=== PATIENT | female | born 1970 | race American Indian/Alaskan Native ===

== ENCOUNTER 2018-05-25 12:32 | Emergency (ER) | payer SELFPAY ==
--- NOTE | 2018-05-25 13:31 | Emergency Department Report ---
Chief Complaint: Abdominal Pain Stated Complaint: PELVIC PAIN/STOMACH PAIN Time Seen by Provider: 05/25/18 13:27 - HPI History of Present Illness: Pt is c/o right pelvic pain that began a couple of days ago hx of ovarian cyst no urinary sx, no fever, no N/V +smoker +marijuana LNMP 05/05/18 MSE screening note: Focused history and physical exam performed. Due to findings the following was ordered: UA, labs, pelvic US ED Disposition for MSE Condition: Stable Instructions: Abdominal Pain (ED)
[2018-05-25 14:29] LABS: Bacteria,Urine 1+ /HPF (Negative); Bilirubin,Urine NEG (Negative); Blood,Urine NEG (Negative); Color,Urine Yellow (Yellow); Mucus,Urine FEW /HPF; Protein,Urine <15 mg/dL mg/dL (Negative); Urobilinogen,Urine < 2.0 mg/dL (<2.0)
--- NOTE | 2018-05-25 14:31 | Emergency Department Report ---
ED Female HPI - General Chief complaint: Abdominal Pain Stated complaint: PELVIC PAIN/STOMACH PAIN Time Seen by Provider: 05/25/18 13:27 Source: patient Mode of arrival: Ambulatory Limitations: No Limitations - History of Present Illness Initial comments: This is a 48-year-old female nontoxic, well nourished in appearance, no acute signs of distress presents to the ED with c/o of right pelvic pain 1 day. Patient denies any nausea or vomiting. Patient describes pelvic pain as cramping and aching with level of 3/10 right. Patient denies chest pain, short of breath, fever, chills, headache, stiff neck, numbness or tingling. Patient denies any diarrhea or constipation. Patient denies any radiation of pain. Patient stated has history of ovarian cyst and symptoms are very similar. Patient denies any recent travels. Patient denies any drug allergies. MD Complaint: pelvic pain -: days(s) (1) Radiation: non-radiating Severity: mild Severity scale (0 -10): 3 Quality: cramping, aching Consistency: intermittent Improves with: none Worsens with: none Are you Now?: No Associated Symptoms: denies other symptoms. denies: vaginal discharge, vaginal bleeding, abdominal pain, nausea/vomiting, fever/chills, headaches, loss of appetite, dysuria, hematuria, rash, seizure, shortness of breath, syncope, weakness - Related Data Previous Rx's Medication Instructions Recorded Last Taken Type EPINEPHrine [Epipen 2-Alex] 0.3 mg IM PRN #2 ml 08/31/14 Unknown Rx diphenhydrAMINE [Benadryl] 25 mg PO Q6HR #8 capsule 08/31/14 Unknown Rx predniSONE [Prednisone] 50 mg PO DAILY #5 tablet 08/31/14 Unknown Rx Ibuprofen [Motrin] 600 mg PO Q8H PRN #20 tablet 05/25/18 Unknown Rx Allergies Allergy/AdvReac Type Severity Reaction Status Date / Time No Known Allergies Allergy Verified 05/25/18 12:33 ED Review of Systems ROS: Stated complaint: PELVIC PAIN/STOMACH PAIN Other details as noted in HPI Constitutional: denies: chills, fever Eyes: denies: eye pain, eye discharge, vision change ENT: denies: ear pain, throat pain Respiratory: denies: cough, shortness of breath, wheezing Cardiovascular: denies: chest pain, palpitations Endocrine: no symptoms reported Gastrointestinal: denies: abdominal pain, nausea, diarrhea Genitourinary: denies: urgency, dysuria, discharge Musculoskeletal: denies: back pain, joint swelling, arthralgia Skin: denies: rash, lesions Neurological: denies: headache, weakness, paresthesias Psychiatric: denies: anxiety, depression Hematological/Lymphatic: denies: easy bleeding, easy bruising ED Past Medical Hx - Past Medical History Previous Medical History?: No - Surgical History Past Surgical History?: No - Social History Smoking Status: Current Every Day Smoker Substance Use Type: Marijuana - Medications Home Medications: Home Medications Medication Instructions Recorded Confirmed Last Taken Type EPINEPHrine [Epipen 2-Alex] 0.3 mg IM PRN #2 ml 08/31/14 Unknown Rx diphenhydrAMINE [Benadryl] 25 mg PO Q6HR #8 capsule 08/31/14 Unknown Rx predniSONE [Prednisone] 50 mg PO DAILY #5 tablet 08/31/14 Unknown Rx Ibuprofen [Motrin] 600 mg PO Q8H PRN #20 tablet 05/25/18 Unknown Rx ED Physical Exam - General Limitations: No Limitations General appearance: alert, in no apparent distress - Head Head exam: Present: atraumatic, normocephalic - Eye Eye exam: Present: normal appearance - Neck Neck exam: Present: normal inspection, full ROM - Respiratory Respiratory exam: Present: normal lung sounds bilaterally. Absent: respiratory distress, wheezes, rales, rhonchi, stridor, chest wall tenderness, accessory muscle use, decreased breath sounds, prolonged expiratory - Cardiovascular Cardiovascular Exam: Present: regular rate, normal rhythm, normal heart sounds. Absent: bradycardia, tachycardia, irregular rhythm, systolic murmur, diastolic murmur, rubs, gallop - GI/Abdominal GI/Abdominal exam: Present: soft, normal bowel sounds. Absent: distended, tenderness, guarding, rebound, rigid, diminished bowel sounds - Expanded GI/Abdominal Exam Expanded GI/Abdominal exam: Absent: psoas sign, Shen's sign, Rovsing's sign, tenderness at Mcburney's Point, ascites - Extremities Exam Extremities exam: Present: normal inspection, full ROM - Back Exam Back exam: Present: normal inspection, full ROM. Absent: tenderness, CVA tenderness (R), CVA tenderness (L), muscle spasm, paraspinal tenderness, vertebral tenderness, rash noted - Neurological Exam Neurological exam: Present: alert, oriented X3 - Psychiatric Psychiatric exam: Present: normal affect, normal mood - Skin Skin exam: Present: warm, dry, intact, normal color. Absent: rash ED Course Vital Signs 05/25/18 13:28 Temperature 98.1 F Pulse Rate 65 Respiratory 16 Rate Blood Pressure 139/88 O2 Sat by Pulse 98 Oximetry - Reevaluation(s) Reevaluation #1: 05/25/18 14:35 Patient is speaking in full sentences with no signs of distress noted. ED Medical Decision Making - Lab Data Result diagrams: 05/25/18 14:07 05/25/18 14:13 - Medical Decision Making This is a 48-year-old female that presents with pelvic pain, fibroids and ovarian cyst. Patient is stable and was examined by me. There is no abdominal tenderness. Negative signs of symptoms of appendicitis. Labs obtained. UA obtained. US of pelvic/transvaginal obtained and dictated by the radiologist. Patient is notified of the report with no questions noted by the patient. Vital signs are stable prior to discharge. Patient received Motrin in the ED which patient stated symptoms has resolved and subsided. A by mouth challenge has been obtained and patient tolerated well with no nausea vomiting. Patient was notified of strict precautions of appendicitis symptoms and to return to the ED if symptoms occurs as soon as possible. Patient was also instructed to Follow- up with OBGYN doctor in 3-5 days or if symptoms worsen and continue return to emergency room as soon as possible. At time of discharge, the patient does not seem toxic or ill in appearance. No acute signs of distress noted. Patient agrees to discharge treatment plan of care. No further questions noted by the patient. Critical care attestation.: If time is entered above; I have spent that time in minutes in the direct care of this critically ill patient, excluding procedure time. ED Disposition Clinical Impression: Pelvic pain Ovarian cyst Qualifiers: Laterality: right Qualified Code(s): N83.201 - Unspecified ovarian cyst, right side Uterine fibroid Qualifiers: Uterine leiomyoma location: unspecified location Qualified Code(s): D25.9 - Leiomyoma of uterus, unspecified Disposition: DC- TO HOME OR SELFCARE Is pt being admited?: No Does the pt Need Aspirin: No Condition: Stable Instructions: Ovarian Cyst (ED), Uterine Fibroids (ED) Additional Instructions: Follow-up with a OBGYNe doctor in 3-5 days or if symptoms worsen and continue return to emergency room as soon as possible. Prescriptions: Ibuprofen [Motrin] 600 mg PO Q8H PRN #20 tablet PRN Reason: Pain Referrals: PRIMARY CARE, [Referring] - 3-5 Days MELANIE VALLE MD [Staff Physician] - 3-5 Days [facility] [Outside] - 3[facility] Days [facility] - [facility]-5 Days Forms: Work/School Release Form(ED)
[2018-05-25 14:33] LABS: HCG Qualitative,Urine Negative (Negative)
[2018-05-25 14:35] LABS: Basophils # (Auto) 0.1 K/mm3 (0.0-0.1); Eosinophils # (Auto) 0.2 K/mm3 (0.0-0.4); Eosinophils % (Auto) 3.4 % (0.0-4.3); Hemoglobin 10.7 gm/dl (10.1-14.3); Lymphocytes # (Auto) 1.6 K/mm3 (1.2-5.4); Lymphocytes % (Auto) 25.5 % (13.4-35.0); Mean Corpuscular HGB Conc 34 % (30-34); Mean Corpuscular Volume 75 fl (79-97); Monocytes # (Auto) 0.5 K/mm3 (0.0-0.8); Monocytes % (Auto) 7.9 % (0.0-7.3); Platelet Count 243 K/mm3 (140-440); Red Blood Count 4.29 M/mm3 (3.65-5.03); Red Cell Distribution Width 17.1 % (13.2-15.2)
[2018-05-25 15:04] LABS: Alanine Aminotransferase 8 units/L (7-56); Albumin 3.9 g/dL (3.9-5); BUN/Creatinine Ratio 11; Blood Urea Nitrogen 8 mg/dL (7-17); Calcium 9.1 mg/dL (8.4-10.2); Hemolysis Index 5
[2018-05-25 15:07] LABS: Bilirubin,Direct < 0.2 mg/dL (0-0.2)
[2018-05-25] MEDS ORDERED: IBUPROFEN PO ONE (16:03)
--- NOTE | 2018-05-25 16:27 | Ultrasound Report ---
PROCEDURE: US TRANSVAGINAL TECHNIQUE: Transverse longitudinal sonograms obtained with transvaginal hurley scale sonography. HISTORY: right sided pelvic pain, hx ovarian cyst COMPARISONS: None FINDINGS: Uterus measures 9.5 x 5.1 x 6.2 cm. Multiple fibroids are present. Private Duty Aide anterior uterine body intramural fibroid measures 2.8 x 2.1 x 2.6 cm. Private Duty Aide posterior uterine body intramural fibroid measures 2.0 x 2.0 x 2.0 cm. Endometrial thickness 0.6 cm. Right ovary measures 3.0 x 2.0 x 2.2 cm. Left ovary measures 3.8 x 2.5 x 3.3 cm. Both ovaries demonstrate blood flow. 2.9 cm complex cystic lesion left ovary compatible with dominant follicle or corpus luteum. Minimal free fluid IMPRESSION: Multiple uterine fibroids. Normal endometrial thickness Bilateral ovaries demonstrate normal size. Blood flow present. Dominant follicle or corpus luteum left ovary Minimal free fluid. This document is electronically signed by Rick Anderson MD., May 25 2018 04:24:47 PM ET
--- NOTE | 2018-05-25 16:59 | Ultrasound Report ---
PROCEDURE: US PELVIS DUPLEX DOPPLER COMP TECHNIQUE: Transabdominal grayscale, color flow and Doppler waveform imaging of the pelvis was perfo rmed. HISTORY: right pelvic pain COMPARISONS: Transvaginal study also performed today FINDINGS: The uterus measures 9.5 cm x 5.1 cm x 6.2 cm and is fibroid in appearance. The largest measured fibroid measures approximately 2.4 cm in the maximum dimension. Endometrial thickness measures 8.6 mm. The right ovary measures 3 cm x 2 cm x 2 cm in size and is unremarkable in appearance. The left ovary measures 3.9 cm x 1.9 cm x 4.2 cm and contains an approximately 1.7 cm dominant follic le or small cyst. Flow is demonstrated in both ovaries utilizing color flow and Doppler waveform imaging. No free fluid is demonstrated in the pelvis. IMPRESSION: 1. Fibroid uterus. The report of the transvaginal study describes fibroid measurements. 2. Dominant follicle or small cyst left ovary. 3. Flow is demonstrated in both ovaries. This document is electronically signed by Rachael Conley MD., May 25 2018 04:56:41 PM ET
[2018-05-25 18:14] VITALS: BP 144/92
== END 2018-05-25 18:12 | disposition home or self-care (01) ==
LOC: ED 12:32
DX: N83.201 Unspecified ovarian cyst, right side (principal); D25.9 Leiomyoma of uterus, unspecified; F17.200 Nicotine dependence, unspecified, uncomplicated
CPT/HCPCS: 36415; 76830; 80048; 80076; 81001; 81025; 83690; 85025; 93975

== ENCOUNTER 2018-09-21 16:34 | Emergency (ER) | payer SELFPAY ==
--- NOTE | 2018-09-21 17:06 | Event Note ---
ED Screening Note ED Screening Note: pt presents left hip pain that began last night while she was asleep she denies any fall or injury no urinary sx LNMP: september 05 PMHx HTN- does not take medication for it This initial assessment/diagnostic orders/clinical plan/treatment(s) is/are subject to change based on patients health status, clinical progression and re- assessment by fellow clinical providers in the ED. Further treatment and workup at subsequent clinical providers discretion. Patient/guardian urged not to elope from the ED as their condition may be serious if not clinically assessed and managed. Initial orders include: UA, urine preg, XR of the left hip
[2018-09-21 17:09] VITALS: BP 149/80
[2018-09-21 17:49] LABS: HCG Qualitative,Urine Negative (Negative)
[2018-09-21 17:50] LABS: Bilirubin,Urine NEG (Negative); Blood,Urine SM (Negative); Color,Urine Yellow (Yellow); Mucus,Urine FEW /HPF; Protein,Urine <15 mg/dL mg/dL (Negative); Urobilinogen,Urine < 2.0 mg/dL (<2.0)
--- NOTE | 2018-09-21 18:18 | XRay Report ---
2 views of the left hip INDICATION / CLINICAL INFORMATION: left hip pain. COMPARISON: None available. FINDINGS: BONES/JOINT(S): No acute fracture or subluxation. No significant degenerative changes. Normal bone mi neralization. SOFT TISSUES: No significant abnormality. ADDITIONAL FINDINGS: None. Signer Name: Marv Jiménez MD Signed: 09/21/2018 6:14 PM Workstation Name: [id number]
[2018-09-21] MEDS ORDERED: NORCO 5/325 PO STA (20:43)
--- NOTE | 2018-09-21 20:51 | Emergency Department Report ---
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 States that she worked long hours, 2 days prior and thinks that may have triggered some of the hip discomfort. Pain is sharp and occasionally does radiate down the thigh, worse with prolonged standing and some positions and palpation. No numbness or tingling. No swelling or bruising. He reports no broken skin or rash MD Complaint: hip injury -: Gradual Injury: Hip: Left Type of Injury: unknown Place: home Severity: mild Improves With: nothing Worsens With: nothing Associated Symptoms: ambulatory. denies: numbness, able to partially bear weight - Related Data Previous Rx's Medication Instructions Recorded Last Taken Type EPINEPHrine [Epipen 2-Alex] 0.3 mg IM PRN #2 ml 08/31/14 Unknown Rx diphenhydrAMINE [Benadryl] 25 mg PO Q6HR #8 capsule 08/31/14 Unknown Rx predniSONE [Prednisone] 50 mg PO DAILY #5 tablet 08/31/14 Unknown Rx Ibuprofen [Motrin] 600 mg PO Q8H PRN #20 tablet 05/25/18 Unknown Rx predniSONE [Deltasone] 50 mg PO QDAY #5 tab 09/21/18 Unknown Rx Allergies Allergy/AdvReac Type Severity Reaction Status Date / Time No Known Allergies Allergy Verified 09/21/18 16:35 ED Review of Systems ROS: Stated complaint: RT HIP PAIN Other details as noted in HPI Comment: All other systems reviewed and negative ED Past Medical Hx - Past Medical History Previous Medical History?: Yes Hx Hypertension: Yes - Surgical History Past Surgical History?: No - Social History Smoking Status: Never Smoker Substance Use Type: Alcohol, Marijuana - Medications Home Medications: Home Medications Medication Instructions Recorded Confirmed Last Taken Type EPINEPHrine [Epipen 2-Alex] 0.3 mg IM PRN #2 ml 08/31/14 Unknown Rx diphenhydrAMINE [Benadryl] 25 mg PO Q6HR #8 capsule 08/31/14 Unknown Rx predniSONE [Prednisone] 50 mg PO DAILY #5 tablet 08/31/14 Unknown Rx Ibuprofen [Motrin] 600 mg PO Q8H PRN #20 tablet 05/25/18 Unknown Rx predniSONE [Deltasone] 50 mg PO QDAY #5 tab 09/21/18 Unknown Rx ED Physical Exam - General Limitations: No Limitations General appearance: alert, in no apparent distress - Head Head exam: Present: atraumatic, normocephalic - Eye Eye exam: Present: normal appearance, PERRL, EOMI Pupils: Present: normal accommodation - ENT ENT exam: Present: normal exam, mucous membranes moist - Neck Neck exam: Present: normal inspection, full ROM - Respiratory Respiratory exam: Present: normal lung sounds bilaterally. Absent: respiratory distress - Cardiovascular Cardiovascular Exam: Present: regular rate, normal rhythm. Absent: systolic murmur, diastolic murmur, rubs, gallop - GI/Abdominal GI/Abdominal exam: Present: soft, normal bowel sounds - Extremities Exam Extremities exam: Present: normal inspection, tenderness (2. Left hip with palpation. Tenderness over the greater trochanter region. Skin is normal inspection. There is no rashes appreciated. No numbness. Sensation is intact. Full range of motion with hip flexion and extension. With abduction and adduction. Although there is some discomfort when doing so.) - Back Exam Back exam: Present: normal inspection - Neurological Exam Neurological exam: Present: alert, oriented X3 - Psychiatric Psychiatric exam: Present: normal affect, normal mood - Skin Skin exam: Present: warm, dry, intact, normal color. Absent: rash ED Course Vital Signs 09/21/18 17:07 Temperature 98.8 F Pulse Rate 90 Respiratory 16 Rate Blood Pressure 149/80 [Right] O2 Sat by Pulse 98 Oximetry ED Lower Extremity MDM - Medical Decision Making 4. 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 She is requesting a work note to give her a few days. Rest. She will have can recover. [id number] medications are helpful. She has not tried icing the area either. Critical care attestation.: If time is entered above; I have spent that time in minutes in the direct care of this critically ill patient, excluding procedure time. ED Disposition Clinical Impression: Left hip pain Disposition: TO HOME OR SELFCARE Is pt being admited?: No Does the pt Need Aspirin: No Condition: Stable Instructions: Arthralgia (ED), Hip Bursitis (ED) Prescriptions: predniSONE [Deltasone] 50 mg PO QDAY #5 tab Referrals: JADE ODOM MD [Primary Care Provider] - 3-5 Days
== END 2018-09-21 21:25 | disposition home or self-care (01) ==
LOC: ED 16:34
DX: M25.552 Pain in left hip (principal); I10 Essential (primary) hypertension; F12.10 Cannabis abuse, uncomplicated; Z79.1 Long term (current) use of non-steroidal anti-inflammatories (NSAID); Z79.899 Other long term (current) drug therapy
CPT/HCPCS: 81001; 81025; 87086; 99283